=== PATIENT | female | born 1990 | race African-American/Black ===

== ENCOUNTER 2025-07-06 15:03 | Emergency (ER) | payer MEDICAID ==
[~2025-07-06] VITALS: Ht 167.6 cm; Wt 57.7 kg
[2025-07-06 15:13] VITALS: BP 118/80; TEMP 98.5
[2025-07-06] MEDS ORDERED: DEXT10TA7 PO (15:30)
[2025-07-06] MEDS ORDERED: AMPH20CA3 PO (15:30)
[2025-07-06 15:36] VITALS: O2SAT 100
== END 2025-07-06 15:36 | disposition home or self-care (01) ==
LOC: ER 15:11
DX: F41.9 Anxiety disorder, unspecified (principal); Z76.0 Encounter for issue of repeat prescription